=== PATIENT | female | born 1970 | race Caucasian/White ===

== ENCOUNTER 2018-02-16 20:34 | Emergency (ER) | payer OTHER ==
[~2018-02-16] VITALS: Ht 154.9 cm; Wt 73.9 kg
[2018-02-16] MEDS ORDERED: FORTAMET1000 MG (21:28)
[2018-02-16] MEDS ORDERED: ENALAPRIL-HCTZ1 EACH (21:29)
[2018-02-16] MEDS ORDERED: GLIPIZIDE XL10 MG (21:29)
== END 2018-02-16 23:11 | disposition home or self-care (01) ==
LOC: ER 20:34
DX: H53.8 Other visual disturbances (principal)